=== PATIENT | male | born 1950 | race Caucasian/White ===

== ENCOUNTER 2018-10-29 14:10 | Observation (INO) ==
[2018-10-29] MEDS ORDERED: Sod Chloride 0.9% Inj 1,000 ML IV.SIG ONE (14:51)
--- NOTE | 2018-10-29 14:56 | ED ---
HPI General Chief Complaint: Abdominal Pain Stated Complaint: Dr Cruz Time Seen by Provider: 10/29/18 14:41 Source: patient Mode of arrival: ambulatory Limitations: no limitations History of Present Illness HPI narrative: 68-year-old male with PMH of HTN presents to the ED for evaluation of "around a few months" history of painful mass in the left lower quadrant of the abdomen. Gradual onset. Worsening over the last few weeks. Patient states that the area is not painful today. He endorses nausea and early satiety. He denies fever, chills, vomiting. He states that he has a bowel movement about every 3 days. States his bowel movements are well formed and nonbloody. He endorses decreased urination. He denies history of abdominal surgery. He is a lifelong smoker. He states that this condition has caused him to cut back his drinking to "almost nothing." He endorses history of multiple cancers in family members. He has never had a screening colonoscopy. He states that he saw his primary care, Dr. Viramontes, last week who recommended that he have imaging of the area. Related Data Home Medications Medication Instructions Recorded Confirmed No Known Home Medications 10/29/18 10/29/18 Allergies Allergy/AdvReac Type Severity Reaction Status Date / Time No Known Allergies Allergy Verified 10/29/18 15:14 Review of Systems ROS: all other systems reviewed are negative PMFSH Family History Family History Other Lung cancer Social History Social History Substance History: Active Abuse Second Hand Smoke Exposure: Yes Smoking Status: Current every day smoker Tobacco Type: Cigarettes How Often Do You Have a Drink Containing Alcohol: Monthly or less Recent Travel in [facility] within the Last 8 Weeks: No Recent Out of Country Travel within the Last 8 Weeks: No Exam Narrative Exam Narrative: GENERAL: Well-nourished, well-developed white male in no acute distress. SKIN: Focused skin assessment warm/dry. HEAD: Atraumatic. Normocephalic. EYES: Pupils equal and round. No scleral icterus. No injection or drainage. ENT: No nasal bleeding or discharge. Mucous membranes pink and moist. NECK: Trachea midline. No JVD. CARDIOVASCULAR: Regular rate and rhythm. No murmur appreciated. RESPIRATORY: No accessory muscle use. Clear to auscultation. Breath sounds equal bilaterally. GASTROINTESTINAL: Abdomen soft, nondistended. Palpable tender mass in the left infraumbilical region to the left lower quadrant. It is not reducible. Active bowel sounds. Hepatic and splenic margins not palpable. MUSCULOSKELETAL: No obvious deformities. No clubbing. No cyanosis. No edema. NEUROLOGICAL: Awake and alert. No obvious cranial nerve deficits. Motor grossly within normal limits. Normal speech. PSYCHIATRIC: Appropriate mood and affect; insight and judgment normal. Course Initial Documented Vital Signs Pulse Rate 109 H 10/29/18 14:32 Respiratory Rate 16 10/29/18 14:32 Blood Pressure 130/73 10/29/18 14:32 Pulse Oximetry 97 10/29/18 14:32 Last Documented Vital Signs Temperature 97.5 F L 10/30/18 04:00 Pulse Rate 86 10/30/18 04:00 Respiratory Rate 14 10/30/18 04:00 Blood Pressure 115/57 L 10/30/18 04:00 Pulse Oximetry 98 10/30/18 04:00 Medical Decision Making MICHAEL Attestation MICHAEL supervised visit: Yes Attestation: I, Dr. Almanzar, have reviewed the advance practice practitioner's documentation and am in agreement, met with the patient face to face, made the diagnosis, and the medical decision making was done by me. *My assessment and Findings: [-Patient is 68 years old male presented for evaluation of low abdomen hernia like structure. As per CAT scan patient has new mass, patient is admitted for further evaluation and treatment.] MDM Narrative Medical decision making narrative: 68-year-old male with PMH of HTN presents to the ED for evaluation of "around a few months" history of painful mass in the left lower quadrant of the abdomen. Worsening over the last few weeks. He endorses nausea, early satiety and weight loss. He is a lifelong smoker. He endorses history of multiple cancers in family members. He has never had a screening colonoscopy. The patient is tachycardic and afebrile on presentation. Physical exam reveals a large infraumbilical mass. WBC 15.3. Hemoglobin 11.7. Sodium 131. Lipase 63. Calcium 9.0. CT abdomen pelvis reveals an anterior abdominal wall mass measuring 17 cm x 9 cm which arises from the rectus muscle with breakthrough of the muscle of the fascia onto the left lateral margin. Cecum appears abnormal with much appears like a soft tissue mass. There is an abnormal mass of 2.5 cm in the left lobe of the liver adjacent to the falciform ligament. I discussed the findings with the patient as well as the recommendation for further evaluation on the inpatient setting. Patient is agreeable to this plan. I spoke with Dr. Goss who agrees to accept the patient to the medicine service. Please see medicine notes for disposition. Medical Screen Exam Complete: Yes Emergency Medical Condition: Yes Differential Diagnosis Differential Diagnosis: hernia versus mass versus bowel obstruction versus other Lab Data Result diagrams: 10/29/18 14:57 10/29/18 14:57 Lab Results 10/29/18 10/29/18 10/29/18 Range/Units 14:57 14:57 16:00 WBC 15.3 H (4.0-11.0) th/mm3 RBC 4.37 L (4.50-5.90) mil/mm3 Hgb 11.7 L (13.0-17.0) gm/dL Hct 35.5 L (39.0-51.0) % MCV 81.2 (80.0-100.0) fL MCH 26.8 L (27.0-34.0) pg MCHC 33.0 (32.0-36.0) % RDW 16.6 (11.6-17.2) % Plt Count 462 H (150-450) th/mm3 MPV 8.3 (7.0-11.0) fL Neut % (Auto) 84.9 H (16.0-70.0) % Lymph % (Auto) 7.6 L (9.0-44.0) % [place] % (Auto) 6.6 (0.0-8.0) % Eos % (Auto) 0.3 (0.0-4.0) % Baso % (Auto) 0.6 (0.0-2.0) % Neut # (Auto) 13.0 H (1.8-7.7) th/mm3 Lymph # (Auto) 1.2 (1.0-4.8) th/mm3 [place] # (Auto) 1.0 H (0.0-0.9) th/mm3 Eos # (Auto) 0.1 (0.0-0.4) th/mm3 Baso # (Auto) 0.1 (0.0-0.2) th/mm3 WBC Differential . Differential Comment Auto diff final Sodium 131 L (136-145) meq/L Potassium 4.3 (3.5-5.1) meq/L Chloride 93 L (98-107) meq/L Carbon Dioxide 26.5 (21.0-32.0) meq/L Anion Gap 12 (5-15) meq/L BUN 22 H (7-18) mg/dL Creatinine 0.99 (0.60-1.30) mg/dL Estimated GFR 75 L (>89) mL/min POC Glucose (68-110) mg/dl Random Glucose 136 H (74-106) mg/dL Calcium 9.0 (8.5-10.1) mg/dL Magnesium 2.3 (1.5-2.5) mg/dL Total Bilirubin 0.7 (0.2-1.0) mg/dL AST 15 (15-37) U/L ALT 15 (12-78) U/L Alkaline Phosphatase 133 H (45-117) U/L Total Protein 8.0 (6.4-8.2) g/dL Albumin 2.6 L (3.4-5.0) g/dL Lipase 63 L (73-393) U/L Urine Color Sarahi (Yellw/Straw) Urine Clarity Hazy H (Clear) Urine pH 5.0 (5.0-8.5) Ur Specific [place] 1.026 (1.002-1.035) Urine Protein 100 H (Neg-Trace) mg/dL Urine Glucose (UA) Negative (Negative) mg/dL Urine Ketones 20 (Negative) mg/dL Urine Occult Blood Negative (Negative) Urine Nitrate Negative (Negative) Urine Bilirubin Negative (Negative) Urine Ictotest Negative (Negative) Urine Urobilinogen 4 or greater (Less than 2) mg/dL Ur Leukocyte Esterase Negative (Negative) Urine RBC 2 (0-3) /hpf Urine WBC 3 (0-5) /hpf Ur Squamous Epith Cells <1 (0-5) /hpf Hyaline Casts 4 (0-3) /lpf Granular Casts 10 (None) /lpf Urine Mucus Many H (Occasional) /lpf Micro UA Comment Culture not ind Ur Microscopic Review Not Reportable Urine Culture Comments Culture not ind 10/29/18 Range/Units 23:44 WBC (4.0-11.0) th/mm3 RBC (4.50-5.90) mil/mm3 Hgb (13.0-17.0) gm/dL Hct (39.0-51.0) % MCV (80.0-100.0) fL MCH (27.0-34.0) pg MCHC (32.0-36.0) % RDW (11.6-17.2) % Plt Count (150-450) th/mm3 MPV (7.0-11.0) fL Neut % (Auto) (16.0-70.0) % Lymph % (Auto) (9.0-44.0) % [place] % (Auto) (0.0-8.0) % Eos % (Auto) (0.0-4.0) % Baso % (Auto) (0.0-2.0) % Neut # (Auto) (1.8-7.7) th/mm3 Lymph # (Auto) (1.0-4.8) th/mm3 [place] # (Auto) (0.0-0.9) th/mm3 Eos # (Auto) (0.0-0.4) th/mm3 Baso # (Auto) (0.0-0.2) th/mm3 WBC Differential Differential Comment Sodium (136-145) meq/L Potassium (3.5-5.1) meq/L Chloride (98-107) meq/L Carbon Dioxide (21.0-32.0) meq/L Anion Gap (5-15) meq/L BUN (7-18) mg/dL Creatinine (0.60-1.30) mg/dL Estimated GFR (>89) mL/min POC Glucose 141 H (68-110) mg/dl Random Glucose (74-106) mg/dL Calcium (8.5-10.1) mg/dL Magnesium (1.5-2.5) mg/dL Total Bilirubin (0.2-1.0) mg/dL AST (15-37) U/L ALT (12-78) U/L Alkaline Phosphatase (45-117) U/L Total Protein (6.4-8.2) g/dL Albumin (3.4-5.0) g/dL Lipase (73-393) U/L Urine Color (Yellw/Straw) Urine Clarity (Clear) Urine pH (5.0-8.5) Ur Specific [place] (1.002-1.035) Urine Protein (Neg-Trace) mg/dL Urine Glucose (UA) (Negative) mg/dL Urine Ketones (Negative) mg/dL Urine Occult Blood (Negative) Urine Nitrate (Negative) Urine Bilirubin (Negative) Urine Ictotest (Negative) Urine Urobilinogen (Less than 2) mg/dL Ur Leukocyte Esterase (Negative) Urine RBC (0-3) /hpf Urine WBC (0-5) /hpf Ur Squamous Epith Cells (0-5) /hpf Hyaline Casts (0-3) /lpf Granular Casts (None) /lpf Urine Mucus (Occasional) /lpf Micro UA Comment Ur Microscopic Review Urine Culture Comments Imaging Data Radiologist's impression: Abdomen/Pelvis CT 10/29/18 14:51 CONCLUSION: 1. Large mass the rectus anterior abdominal wall, undoubtedly malignant 2. Abnormal cecum 3. 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 4. Discharge Plan Discharge Disposition Patient Disposition: ED Admit(ED Internal Use Only) Discharge Order Discharge Orders: ED Use Only Admit Order (Routine); Ordered 10/29/18 Ordered By: Whitney Bustamante Physicians Team ED Provider: Mart Almanzar ED Midlevel Provider: Whitney Bustamante Primary Care Provider: Saranya Santana Attending Provider: Vasyl Galo Other Providers: Derek Sullivan V ; [employer] Status ED Status: Left Department Discharge Information Discharge Date/Time: 10/29/18 19:34
[2018-10-29 15:21] LABS: Baso # (Auto) 0.1 th/mm3 (0.0-0.2); Baso % (Auto) 0.6 % (0.0-2.0); Eos # (Auto) 0.1 th/mm3 (0.0-0.4); Eos % (Auto) 0.3 % (0.0-4.0); Hematocrit 35.5 % (39.0-51.0); Hemoglobin 11.7 gm/dL (13.0-17.0); Lymph # (Auto) 1.2 th/mm3 (1.0-4.8); Lymph % (Auto) 7.6 % (9.0-44.0); Mean Corpuscular Hemoglobin 26.8 pg (27.0-34.0); Mean Corpuscular Volume 81.2 fL (80.0-100.0); Mean Platelet Volume 8.3 fL (7.0-11.0); Mono % (Auto) 6.6 % (0.0-8.0); Neut % (Auto) 84.9 % (16.0-70.0); Platelet Count 462 th/mm3 (150-450); Red Blood Count 4.37 mil/mm3 (4.50-5.90); Red Cell Distribution Width 16.6 % (11.6-17.2); White Blood Count 15.3 th/mm3 (4.0-11.0)
[2018-10-29 15:38] LABS: Albumin 2.6 g/dL (3.4-5.0); Anion Gap 12 meq/L (5-15); Aspartate Aminotransferase 15 U/L (15-37); Blood Urea Nitrogen 22 mg/dL (7-18); Carbon Dioxide 26.5 meq/L (21.0-32.0); Chloride 93 meq/L (98-107); Glomerular Filtration Rate 75 mL/min (>89); Glucose,Random 136 mg/dL (74-106); Lipase 63 U/L (73-393); Magnesium 2.3 mg/dL (1.5-2.5); Potassium 4.3 meq/L (3.5-5.1); Sodium 131 meq/L (136-145)
[2018-10-29 15:42] LABS: Alanine Aminotransferase 15 U/L (12-78); Alkaline Phosphatase 133 U/L (45-117)
[2018-10-29 16:21] LABS: Clarity,Urine Hazy (Clear); Color,Urine Amber (Yellw/Straw); Glucose,Urine (UA) Negative (Negative); Hyaline Casts,Urine 4 /lpf (0-3); Leukocyte Esterase,Urine Negative (Negative); Mucus,Urine Many /lpf (Occasional); Nitrite,Urine Negative (Negative); Specific Gravity,Urine 1.026 (1.002-1.035); Squamous Epithelial Cell,Urine <1 /hpf (0-5); Urobilinogen,Urine 4 or Greater mg/dL (Less than 2)
[2018-10-29 16:25] LABS: Bilirubin,Urine Negative (Negative); Ictotest,Urine Negative (Negative)
--- NOTE | 2018-10-29 17:27 | CT ---
EXAM DATE: 10/29/2018 5:06 PM EST AGE/SEX: 68 years / Male INDICATIONS: Abdominal pain left lower quadrant. CLINICAL DATA: This is the patient's initial encounter. Patient reports that signs and symptoms have been present for 1 day and indicates a pain score of 2/10. MEDICAL/SURGICAL HISTORY: Renal calculi. None. ORAL CONTRAST: No oral contrast ingested. RADIATION DOSE: 8.13 CTDI (mGy) COMPARISON: No prior exams available for comparison. TECHNIQUE: Multiple contiguous axial images were obtained through the abdomen and pelvis following b olus infusion of 90 ml Omnipaque 350 (iohexol) nonionic water-soluble contrast as a single exam dos e. No oral contrast ingested. Using automated exposure control and adjustment of the mA and/or kV ac cording to patient size, radiation dose was kept as low as reasonably achievable to obtain optimal di agnostic quality images. DICOM format image data is available electronically for review and comparis on. FINDINGS: Lower Lungs: Lower lungs are clear. Liver: The liver is abnormal with a 2.5 cm mass in the left lobe of the liver segment 2 adjacent to t he falciform ligament. No other lesions are present in the liver. This is suspicious for metastatic d isease or primary neoplasm of the liver. Multiple gallstones are present in a benign-appearing gallbl adder. The pancreas and spleen appear unremarkable . Adrenals and kidneys appear normal. There is a large mass in the anterior abdominal wall measuring 17 cm x 9 cm and appears to arise in the rectus muscle with breakthrough of the muscle of the fascia on the left lateral margin. The inferior margin of this is intact. The cecum appears abnormal with what looks like a soft tissue mass in the cecum. The ascending, trans verse and descending colon appear unremarkable. The sigmoid colon multiple diverticuli are noted. There is no retroperitoneal adenopathy Extensive atherosclerotic vascular disease is present in the abdominal aorta In the pelvis there are multiple diverticuli in the sigmoid colon. The bladder prostate are unremarka ble. There is no obturator or iliac adenopathy. Review of bone windows reveals no bony metastatic dis ease. CONCLUSION: 1. Large mass the rectus anterior abdominal wall, undoubtedly malignant 2. Abnormal cecum 3. 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 4. Electronically signed by: Hawk Roblero MD 10/29/2018 5:26 PM EST
[2018-10-29] MEDS ORDERED: Acetaminophen 325 MG Tablet PO PRN ×2 (18:02→18:06)
[2018-10-29] MEDS ORDERED: Naloxone Inj 0.4 MG/ML Vial IV.PUSH PRN (18:02)
[2018-10-29] MEDS ORDERED: Dextrose 50% in Water 50 ML Vial IV.PUSH PRN (18:08)
--- NOTE | 2018-10-29 18:25 | P.HP ---
History of Present Illness Primary Care Physician: Saranya Santana MD Chief Complaint: Abdominal pain History of Present Illness: 68-year-old with a past medical history of diabetes type 2, 50-year plus tobacco use presented to the ED at the request of his PCP for evaluation of abdominal pain times several weeks duration along with 20+ pound weight loss over the past couple weeks. Patient has a palpable mass in his left lower quadrants and denies any bladder or bowel dysfunction. He denies any prior colonoscopy. An abdominal CT in the ED revealed a mass in the rectus anterior abdominal wall as well as abnormal cecum. Patient reports anorexia. Denies any blood in his stool. Patient is very adamant about the fact that he does not want any aggressive therapy once a diagnosis is made. Review of Systems All other systems reviewed negative except as stated in HPI PMFSH - History History Provided By: Patient - Medical History Medical History: Medical History (Last Reviewed 10/29/18 @ 15:01 by Vicky Rose RN) History of kidney stones - Surgical History Surgical History: Surgical History (Last Reviewed 10/29/18 @ 15:01 by Vicky Rose RN) No history of previous surgery - Family History Family History: Family History (Last Updated 10/29/18 @ 18:17 by Jovon Goss MD) Other Lung cancer - Tobacco History Second Hand Smoke Exposure: Yes Tobacco Use In Past 30 Days: Yes Smoking Status: Current every day smoker Tobacco Type: Cigarettes - Alcohol History How Often Do You Have a Drink Containing Alcohol: Monthly or less - Substance Use History Substance History: Active Abuse - Substance Use Type Marijuana Route Used: Inhalation - Travel History Recent Travel in the [place] Within the Last 8 Weeks: No Recent Travel Out of the Country Within the Last 8 Weeks: No - Immunization History Tetanus Immunization: Unsure Medications and Allergies Active Medications: Active Medications Acetaminophen (Tylenol) 650 mg PO Q4H PRN PRN Reason: Temp > 100.4 Acetaminophen (Tylenol) 650 mg PO Q6HR PRN PRN Reason: PAIN SCALE 1 TO 2 Al Hydroxide/Mg Hydroxide (Milk Of Magnesia Liq) 30 ml PO Q12H PRN PRN Reason: Mild Constipation Albuterol (Duoneb Neb (Prn)) 1 ampul NEB Q2HR NEB PRN PRN Reason: SHORTNESS OF BREATH Dextrose (D50w Vial) 50 ml IV.PUSH UNSCH PRN PRN Reason: PER HYPOGLYCEMIA PROTOCOL Glucagon (Glucagon Inj) 1 mg OTHER PRN PRN PRN Reason: for Hypoglycemia Protocol Insulin Aspart (Novolog Insulin Correctional Sugar Inj) 0 unit SQ ACHS JAMIR; Protocol Naloxone HCl (Narcan Inj) 0.4 mg IV.PUSH UNSCH PRN PRN Reason: SEE LABEL COMMENTS Nicotine (Habitrol 21 Mg Patch.24 Hr) 1 patch T-DERMAL DAILY JAMIR Ondansetron HCl (Zofran Inj) 4 mg IV.PUSH Q6H PRN PRN Reason: NAUSEA OR VOMITING Patch Removal (Remove Old Patch) 1 each T-DERMAL HS JAMIR Sennosides (Senokot) 17.2 mg PO Q12H PRN PRN Reason: Moderate Constipation Sodium Chloride (Ns Flush) 2 ml IV.FLUSH PRN PRN PRN Reason: FLUSH AFTER USING IV ACCESS Sodium Chloride (Ns Flush) 2 ml IV.FLUSH BID JAMIR Sodium Chloride (Ns Flush) 2 ml IV.FLUSH PRN PRN PRN Reason: FLUSH AFTER USING IV ACCESS Allergies Allergy/AdvReac Type Severity Reaction Status Date / Time No Known Allergies Allergy Verified 10/29/18 15:14 Home Medications Medication Instructions Recorded Confirmed Type No Known Home Medications 10/29/18 10/29/18 History Exam Vital signs: Vital Signs 10/29/18 14:32 10/29/18 15:04 Pulse Rate 109 H 97 H Respiratory Rate 16 16 Blood Pressure 130/73 139/66 Pulse Oximetry 97 98 Intake & Output 10/28/18 10/29/18 10/29/18 18:59 06:59 18:59 Intake Total 1000 / 1000 Balance 1000 / 1000 Weight 77.564 kg Intake: IV 1000 / 1000 NS Inj 1,000 ML @ Wide Open IV. 1000 / 1000 SIG BOLUS ONE Rx#:[id number] Narrative: GENERAL: NAD SKIN: Warm and dry. HEAD: Atraumatic. Normocephalic. EYES: Pupils equal and round. No scleral icterus. No injection or drainage. ENT: No nasal bleeding or discharge. Mucous membranes pink and moist. NECK: Trachea midline. No JVD. CARDIOVASCULAR: Regular rate and rhythm. RESPIRATORY: No accessory muscle use. Clear to auscultation. Breath sounds equal bilaterally. GASTROINTESTINAL: Abdomen soft, tender, nondistended. + Palpable mass in the left lower quadrant, tender to palpation MUSCULOSKELETAL: Extremities without clubbing, cyanosis, or edema. No obvious deformities. NEUROLOGICAL: Awake and alert. No obvious cranial nerve deficits. Motor grossly within normal limits. Five out of 5 muscle strength in the arms and legs. Normal speech. PSYCHIATRIC: Appropriate mood and affect; insight and judgment normal. Results - Labs CBC & Chem 7: 10/29/18 14:57 10/29/18 14:57 Labs: Laboratory Results - last 24 hr 10/29/18 10/29/18 10/29/18 14:57 14:57 16:00 WBC 15.3 H RBC 4.37 L Hgb 11.7 L Hct 35.5 L MCV 81.2 MCH 26.8 L MCHC 33.0 RDW 16.6 Plt Count 462 H MPV 8.3 Neut % (Auto) 84.9 H Lymph % (Auto) 7.6 L [place] % (Auto) 6.6 Eos % (Auto) 0.3 Baso % (Auto) 0.6 Neut # (Auto) 13.0 H Lymph # (Auto) 1.2 [place] # (Auto) 1.0 H Eos # (Auto) 0.1 Baso # (Auto) 0.1 WBC Differential . Differential Comment Auto diff final Sodium 131 L Potassium 4.3 Chloride 93 L Carbon Dioxide 26.5 Anion Gap 12 BUN 22 H Creatinine 0.99 Estimated GFR 75 L Random Glucose 136 H Calcium 9.0 Magnesium 2.3 Total Bilirubin 0.7 AST 15 ALT 15 Alkaline Phosphatase 133 H Total Protein 8.0 Albumin 2.6 L Lipase 63 L Urine Color Sarahi Urine Clarity Hazy H Urine pH 5.0 Ur Specific [place] 1.026 Urine Protein 100 H Urine Glucose (UA) Negative Urine Ketones 20 Urine Occult Blood Negative Urine Nitrate Negative Urine Bilirubin Negative Urine Ictotest Negative Urine Urobilinogen 4 or greater Ur Leukocyte Esterase Negative Urine RBC 2 Urine WBC 3 Ur Squamous Epith Cells <1 Hyaline Casts 4 Granular Casts 10 Urine Mucus Many H Micro UA Comment Culture not ind Ur Microscopic Review Not Reportable Urine Culture Comments Culture not ind - Imaging Impressions Abdomen/Pelvis CT 10/29/18 14:51 CONCLUSION: 1. Large mass the rectus anterior abdominal wall, undoubtedly malignant 2. Abnormal cecum 3. 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 4. Caprini VTE Risk Assessment Caprini VTE Risk Assessment: Moderate/High Risk (score >= 2) Caprini Risk Assessment Model: Point Value = 1 Point Value = 2 Point Value = 3 Point Value = 5 Age 41-60 Minor surgery BMI > 25 kg/m2 Swollen legs Varicose veins or History of unexplained or recurrent spontaneous Oral contraceptives or hormone replacement Sepsis (< 1 month) Serious lung disease, including pneumonia (< 1 month) Abnormal pulmonary function Acute myocardial infarction Congestive heart failure (< 1 month) History of inflammatory bowel disease Medical patient at bed rest Age 61-74 Arthroscopic surgery Major open surgery (> 45 min) Laparoscopic surgery (> 45 min) Malignancy Confined to bed (> 72 hours) Immobilizing plaster cast Central venous access Age >= 75 History of VTE Family history of VTE Factor V Leiden Prothrombin [id number] Lupus anticoagulant Anticardiolipin antibodies Elevated serum homocysteine Heparin-induced thrombocytopenia Other congenital or acquired thrombophilia Stroke (< 1 month) Elective arthroplasty Hip, pelvis, or leg fracture Acute spinal cord injury (< 1 month) Prophylaxis Regimen: Total Risk Factor Score Risk Level Prophylaxis Regimen 0-1 Low Early ambulation 2 Moderate Order ONE of the following: *Sequential Compression Device (SCD) *Heparin 5000 units SQ BID 3-4 Higher Order ONE of the following medications: *Heparin 5000 units SQ TID *Enoxaparin/Lovenox 40 mg SQ daily (WT < 150 kg, CrCl > 30 mL/min) *Enoxaparin/Lovenox 30 mg SQ daily (WT < 150 kg, CrCl > 10-29 mL/min) *Enoxaparin/Lovenox 30 mg SQ BID (WT < 150 kg, CrCl > 30 mL/min) AND/OR *Sequential Compression Device (SCD) 5 or more Highest Order ONE of the following medications: *Heparin 5000 units SQ TID (Preferred with Epidurals) *Enoxaparin/Lovenox 40 mg SQ daily (WT < 150 kg, CrCl > 30 mL/min) *Enoxaparin/Lovenox 30 mg SQ daily (WT < 150 kg, CrCl > 10-29 mL/min) *Enoxaparin/Lovenox 30 mg SQ BID (WT < 150 kg, CrCl > 30 mL/min) AND *Sequential Compression Device (SCD) Assessment and Plan - Plan 68-year-old with Abdominal mass suspicious for malignant tumor Metastasis disease of unknown cancer type CT abdomen noted and reviewed by me with finding of 1. Large mass the rectus anterior abdominal wall, undoubtedly malignant 2. Abnormal cecum 3. 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 Check tumor markers including CEA, alpha-fetoprotein, LDH, CA 19-9 Will consult gastroenterology for evaluation for colonoscopy with biopsy vs IR Oncology consultation will likely be needed during this hospitalization History of diabetes type 2 Check hemoglobin A1c Leukocytosis Likely stress reactive, monitor Normochromic normocytic anemia Check iron study Tobacco abuse Tobacco counseling cessation provided DVT prophylaxis:B-SCDs
[2018-10-29] MEDS: Budesonide-Formoterol 160/4.5 MCG 6 GM Inhaler INH SCH (20:53)
[2018-10-30] MEDS: Insulin NovoLOG Aspart Correctional Sugar Inj SQ SCH ×4 (00:24→17:37)
[2018-10-30 08:19] LABS: Baso % (Auto) 0.4 % (0.0-2.0); Eos # (Auto) 0.1 th/mm3 (0.0-0.4); Hematocrit 35.6 % (39.0-51.0); Hemoglobin 11.5 gm/dL (13.0-17.0); Lymph % (Auto) 8.9 % (9.0-44.0); Mean Corpuscular HGB Conc 32.4 % (32.0-36.0); Mean Corpuscular Hemoglobin 26.1 pg (27.0-34.0); Mean Corpuscular Volume 80.6 fL (80.0-100.0); Mean Platelet Volume 7.3 fL (7.0-11.0); Mono # (Auto) 0.8 th/mm3 (0.0-0.9); Neut # (Auto) 9.7 th/mm3 (1.8-7.7); Neut % (Auto) 82.7 % (16.0-70.0); Platelet Count 446 th/mm3 (150-450); Red Blood Count 4.41 mil/mm3 (4.50-5.90); Red Cell Distribution Width 16.2 % (11.6-17.2); White Blood Count 11.7 th/mm3 (4.0-11.0)
[2018-10-30] MEDS: Budesonide-Formoterol 160/4.5 MCG 6 GM Inhaler INH SCH (08:43)
[2018-10-30 08:44] LABS: Alkaline Phosphatase 116 U/L (45-117); Total Protein 7.3 g/dL (6.4-8.2)
[2018-10-30 08:45] LABS: % Iron Saturation 10.5 % (20-50); Alpha Fetoprotein Tumor Marker 1.4 ng/mL (0.5-8.0); Carcinoembryonic Antigen 3.7 ng/mL (0.2-5.0)
[2018-10-30 08:50] LABS: Alanine Aminotransferase 14 U/L (12-78); Albumin 2.3 g/dL (3.4-5.0); Anion Gap 9 meq/L (5-15); Blood Urea Nitrogen 15 mg/dL (7-18); Calcium 8.3 mg/dL (8.5-10.1); Carbon Dioxide 28.4 meq/L (21.0-32.0); Chloride 97 meq/L (98-107); Glomerular Filtration Rate Greater Than 89 mL/min (>89); Glucose,Random 103 mg/dL (74-106); Sodium 134 meq/L (136-145)
[2018-10-30 08:52] LABS: Potassium 4.3 meq/L (3.5-5.1)
[2018-10-30 08:58] LABS: Aspartate Aminotransferase 15 U/L (15-37)
[2018-10-30] MEDS ORDERED: Tiotropium Bromide 18 MCG/ACT Inhaler INH SCH (09:00)
--- NOTE | 2018-10-30 10:45 | P.CONGI ---
History of Present Illness Consult date: 10/30/18 Consult reason: cecum mass Chief complaint: Abdominal mass History of Present Illness: This is a 68 yo M with PMH significant for COPD, diabetes mellitus, history of ETOH abuse and nicotine dependence. Patient presented to the emergency department yesterday for evaluation of abdominal pain. Patient states that he has been having abdominal pain for the past couple months. States the pain began in his right lower quadrant abdomen where he noticed a lump and both the pain and lump have been aggressively growing throughout his lower abdomen into his left side. He states that pain is fairly constant, described as a sharp stabbing sensation. He has been taking Aleve and aspirin on a daily basis to help relieve the pain. Patient reports the pain is worse with movement. Other than the Aleve he denies any alleviating factors. Has also been noticing thin stools, states that his bowel movements have been less frequent because he is barely eating. Reports bright red blood in his stools, states that this has been going on for 30 years. He reports that he notices more bleeding after he drinks alcohol. Denies any black stools. He reports a decrease in appetite and an aversion to food. He does report nausea but denies any vomiting. Patient has had a 70 pound weight loss, unintentional over the past year. Patient denies history of colonoscopy or EGD. Patient reports that he has been excessively fatigued over the past couple months and has barely been able to get out of bed. He has also had multiple falls but denies any loss of consciousness. He is unsure why he has been falling, states possibly secondary to weakness. Patient saw his primary care last Saturday and explained his symptoms and his primary care suggested he go to the ER for immediate evaluation. Patient did not feel like coming over the weekend and finally presented yesterday. Patient reports history of alcohol abuse, was drinking 1/ 5 of liquor daily but has slowly been cutting back because it has made him feel sick and he has not had even a sip of alcohol in 2 months. He continues to smoke 1 pack/day. Patient also reports occasional marijuana use. Review of Systems Constitutional: Reports anorexia, Reports fatigue, Reports weight loss Cardiovascular: Denies chest pain Respiratory: Reports cough Gastrointestinal: Reports abdominal pain, Reports bright, red blood in stools, Reports change in bowel habits, Reports nausea, Denies black, tarry stools, Denies coffee ground vomit, Denies difficulty swallowing, Denies feeling full early, Denies loose stools, Denies vomiting Comments: mass to lower abdomen PMFSH - History History Provided By: Patient - Medical History Medical History: Medical History (Last Reviewed 10/30/18 @ 08:42 by Melisa Leyva) History of kidney stones - Surgical History Surgical History: Surgical History (Last Reviewed 10/30/18 @ 08:42 by Melisa Leyva) No history of previous surgery - Family History Family History: Family History (Last Updated 10/29/18 @ 18:17 by Jovon Goss MD) Other Lung cancer - Tobacco History Second Hand Smoke Exposure: Yes Tobacco Use In Past 30 Days: Yes Smoking Status: Current every day smoker Tobacco Type: Cigarettes - Alcohol History How Often Do You Have a Drink Containing Alcohol: Monthly or less - Substance Use History Substance History: Active Abuse - Substance Use Type Marijuana Route Used: Inhalation - Travel History Recent Travel in the [place] Within the Last 8 Weeks: No Recent Travel Out of the Country Within the Last 8 Weeks: No - Immunization History Tetanus Immunization: Unsure Medications and Allergies Active Medications: Active Medications Acetaminophen (Tylenol) 650 mg PO Q4H PRN PRN Reason: Temp > 100.4 Acetaminophen (Tylenol) 650 mg PO Q6HR PRN PRN Reason: PAIN SCALE 1 TO 2 Al Hydroxide/Mg Hydroxide (Milk Of Magnmanny Liq) 30 ml PO Q12H PRN PRN Reason: Mild Constipation Albuterol (Duoneb Neb (Prn)) 1 ampul NEB Q2HR NEB PRN PRN Reason: SHORTNESS OF BREATH Budesonide/Formoterol Fumarate (Symbicort 160/4.5 Mcg Inh) 2 puff INH BID [facility] Last Admin: 10/30/18 08:43 Dose: 2 puff Dextrose (D50w Vial) 50 ml IV.PUSH UNSCH PRN PRN Reason: PER HYPOGLYCEMIA PROTOCOL Glucagon (Glucagon Inj) 1 mg OTHER PRN PRN PRN Reason: for Hypoglycemia Protocol Insulin Aspart (Novolog Insulin Correctional Sugar Inj) 0 unit SQ [facility]; Protocol Last Admin: 10/30/18 08:50 Dose: Not Given Naloxone HCl (Narcan Inj) 0.4 mg IV.PUSH UNSCH PRN PRN Reason: SEE LABEL COMMENTS Nicotine (Habitrol 21 Mg Patch.24 Hr) 1 patch T-DERMAL DAILY [facility] Last Admin: 10/30/18 08:42 Dose: 1 patch Ondansetron HCl (Zofran Inj) 4 mg IV.PUSH Q6H PRN PRN Reason: NAUSEA OR VOMITING Patch Removal (Remove Old Patch) 1 each T-DERMAL HS [facility] Last Admin: 10/29/18 20:54 Dose: Not Given Sennosides (Senokot) 17.2 mg PO Q12H PRN PRN Reason: Moderate Constipation Sodium Chloride (Ns Flush) 2 ml IV.FLUSH PRN PRN PRN Reason: FLUSH AFTER USING IV ACCESS Sodium Chloride (Ns Flush) 2 ml IV.FLUSH BID [facility] Last Admin: 10/30/18 08:43 Dose: 2 ml Sodium Chloride (Ns Flush) 2 ml IV.FLUSH PRN PRN PRN Reason: FLUSH AFTER USING IV ACCESS Tiotropium Putnam (Spiriva 18 Mcg Inh) 18 mcg INH DAILY [facility] Last Admin: 10/30/18 08:42 Dose: 18 mcg Allergies Allergy/AdvReac Type Severity Reaction Status Date / Time No Known Allergies Allergy Verified 10/29/18 15:14 Home Medications Medication Instructions Recorded Confirmed Type No Known Home Medications 10/29/18 10/29/18 History Exam Vital signs: Vital Signs 10/29/18 14:32 10/29/18 15:04 10/29/18 18:27 Temperature Pulse Rate 109 H 97 H 100 H Respiratory Rate 16 16 19 Blood Pressure 130/73 139/66 167/79 H Pulse Oximetry 97 98 98 10/29/18 19:53 10/30/18 00:00 10/30/18 04:00 Temperature 97.7 F 98.0 F 97.5 F L Pulse Rate 100 H 97 H 86 Respiratory Rate 17 16 14 Blood Pressure 160/66 H 130/65 115/57 L Pulse Oximetry 97 96 98 10/30/18 08:00 Temperature 97.6 F Pulse Rate 92 H Respiratory Rate 18 Blood Pressure 134/65 Pulse Oximetry 96 Intake & Output 10/29/18 10/30/18 10/30/18 18:59 06:59 18:59 Intake Total 1000 / 1000 240 / 240 Balance 1000 / 1000 240 / 240 Weight 77.564 kg 75.75 kg Intake: IV 1000 / 1000 NS Inj 1,000 ML @ Wide Open IV. 1000 / 1000 SIG BOLUS ONE Rx#:[id number] Oral 240 / 240 Other: # Voids 2 Weight On Admission 75.75 kg - Constitutional no acute distress, chronically ill appearing - Routine HEENT Exam Head: Present: normocephalic, atraumatic - Routine Respiratory Exam Absent: accessory muscle use - Routine Abdominal Exam Present: soft, normoactive bowel sounds, tenderness (tenderness to lower abdomen mass ), mass (mass present to lower abdomen ) - Routine Skin Exam Present: dry, pallor, warm - Routine Neurological Exam Present: alert, oriented X3 Results - Labs CBC & Chem 7: 10/30/18 07:57 10/30/18 07:57 Labs: Laboratory Results - last 24 hr 10/29/18 10/29/18 10/29/18 14:57 14:57 16:00 WBC 15.3 H RBC 4.37 L Hgb 11.7 L Hct 35.5 L MCV 81.2 MCH 26.8 L MCHC 33.0 RDW 16.6 Plt Count 462 H MPV 8.3 Neut % (Auto) 84.9 H Lymph % (Auto) 7.6 L Cobb % (Auto) 6.6 Eos % (Auto) 0.3 Baso % (Auto) 0.6 Neut # (Auto) 13.0 H Lymph # (Auto) 1.2 Cobb # (Auto) 1.0 H Eos # (Auto) 0.1 Baso # (Auto) 0.1 WBC Differential . Differential Comment Auto diff final Sodium 131 L Potassium 4.3 Chloride 93 L Carbon Dioxide 26.5 Anion Gap 12 BUN 22 H Creatinine 0.99 Estimated GFR 75 L POC Glucose Random Glucose 136 H Calcium 9.0 Magnesium 2.3 Iron TIBC % Saturation Total Bilirubin 0.7 AST 15 ALT 15 Alkaline Phosphatase 133 H Lactate Dehydrogenase Total Protein 8.0 Albumin 2.6 L Lipase 63 L Tumor Marker AFP Carcinoembryonic Ag CA 19-9 Antigen Urine Color Sarahi Urine Clarity Hazy H Urine pH 5.0 Ur Specific Tyler 1.026 Urine Protein 100 H Urine Glucose (UA) Negative Urine Ketones 20 Urine Occult Blood Negative Urine Nitrate Negative Urine Bilirubin Negative Urine Ictotest Negative Urine Urobilinogen 4 or greater Ur Leukocyte Esterase Negative Urine RBC 2 Urine WBC 3 Ur Squamous Epith Cells <1 Hyaline Casts 4 Granular Casts 10 Urine Mucus Many H Micro UA Comment Culture not ind Ur Microscopic Review Not Reportable Urine Culture Comments Culture not ind 10/29/18 10/30/18 10/30/18 23:44 07:57 07:57 WBC RBC Hgb Hct MCV MCH MCHC RDW Plt Count MPV Neut % (Auto) Lymph % (Auto) Cobb % (Auto) Eos % (Auto) Baso % (Auto) Neut # (Auto) Lymph # (Auto) Cobb # (Auto) Eos # (Auto) Baso # (Auto) WBC Differential Differential Comment Sodium Potassium Chloride Carbon Dioxide Anion Gap BUN Creatinine Estimated GFR POC Glucose 141 H Random Glucose Calcium Magnesium Iron 22 L TIBC 210 L % Saturation 10.5 L Total Bilirubin AST ALT Alkaline Phosphatase Lactate Dehydrogenase 154 Total Protein Albumin Lipase Tumor Marker AFP 1.4 Carcinoembryonic Ag 3.7 CA 19-9 Antigen 7.9 Urine Color Urine Clarity Urine pH Ur Specific Tyler Urine Protein Urine Glucose (UA) Urine Ketones Urine Occult Blood Urine Nitrate Urine Bilirubin Urine Ictotest Urine Urobilinogen Ur Leukocyte Esterase Urine RBC Urine WBC Ur Squamous Epith Cells Hyaline Casts Granular Casts Urine Mucus Micro UA Comment Ur Microscopic Review Urine Culture Comments 10/30/18 10/30/18 10/30/18 07:57 07:57 08:50 WBC 11.7 H RBC 4.41 L Hgb 11.5 L Hct 35.6 L MCV 80.6 MCH 26.1 L MCHC 32.4 RDW 16.2 Plt Count 446 MPV 7.3 Neut % (Auto) 82.7 H Lymph % (Auto) 8.9 L Cobb % (Auto) 7.0 Eos % (Auto) 1.0 Baso % (Auto) 0.4 Neut # (Auto) 9.7 H Lymph # (Auto) 1.0 Cobb # (Auto) 0.8 Eos # (Auto) 0.1 Baso # (Auto) 0.0 WBC Differential . Differential Comment Auto diff final Sodium 134 L Potassium 4.3 Chloride 97 L Carbon Dioxide 28.4 Anion Gap 9 BUN 15 Creatinine 0.64 Estimated GFR Greater than 89 POC Glucose 109 Random Glucose 103 Calcium 8.3 L Magnesium Iron TIBC % Saturation Total Bilirubin 0.7 AST 15 ALT 14 Alkaline Phosphatase 116 Lactate Dehydrogenase Total Protein 7.3 D Albumin 2.3 L Lipase Tumor Marker AFP Carcinoembryonic Ag CA 19-9 Antigen Urine Color Urine Clarity Urine pH Ur Specific Tyler Urine Protein Urine Glucose (UA) Urine Ketones Urine Occult Blood Urine Nitrate Urine Bilirubin Urine Ictotest Urine Urobilinogen Ur Leukocyte Esterase Urine RBC Urine WBC Ur Squamous Epith Cells Hyaline Casts Granular Casts Urine Mucus Micro UA Comment Ur Microscopic Review Urine Culture Comments - Imaging Impressions Abdomen/Pelvis CT 10/29/18 14:51 CONCLUSION: 1. Large mass the rectus anterior abdominal wall, undoubtedly malignant 2. Abnormal cecum 3. 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 4. Assessment and Plan - Plan Assessment: - Large mass in the rectus anterior abdominal wall with abnormal appearing soft tissue mass in the cecum and probable mets to the left lobe of the liver CC: RLQ mass with abdominal pain that has been progressing for a couple months , now the mass has progressed over to the mid and left lower abdomen. Pain is constant, described as a sharp stabbing sensation. He has been taking Aleve and aspirin on a daily basis to help relieve the pain. Worse with movement. Has also been noticing thin stools, states that his bowel movements have been less frequent because he is barely eating. Reports bright red blood in his stools, states that this has been going on for 30 years. He reports that he notices more bleeding after he drinks alcohol. Denies any black stools. He reports a decrease in appetite and an aversion to food. He does report nausea but denies any vomiting. Patient has had a 70 pound weight loss, unintentional over the past year. Patient denies history of colonoscopy or EGD. CT abd/pelvis W IV contrast (10/29) Large mass the rectus anterior abdominal wall, undoubtedly malignant. Abnormal cecum. 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 - History of alcohol abuse, was drinking 1/5 of liquor daily but has slowly been cutting back because it has made him feel sick and he has not had even a sip of alcohol in 2 months. - Nicotine dependence- Smoke 1 pack/day. Patient also reports occasional marijuana use. - Diabetes mellitus, COPD- per primary team I had a long discussion with the patient regarding further GI work up including colonoscopy for tissue biopsy, EGD given his chronic NSAID use, alcohol abuse, and nicotine dependence. Pt is aware that the he most likely has cancer, he does not want to pursue further work up to establish definite diagnosis. States that he will not have EGD or colonoscopy. Pt accepts the risks of not pursuing further work up. He is oriented x 3 and able to answer all questions appropriately and appears to have sound judgement. I discussed case with Dr. Galo and made him aware that pt is refusing GI procedures. I have placed consult for palliative team to come speak with patient. Plan: Recommending EGD/colonoscopy Recommend oncology consult Pt refusing any further testing or treatment As stated above, pt is oriented Discussed with Dr. Galo Palliative care consulted GI will sign off, please reconsult if patient wishes to pursue further work up This patient has been seen and examined by myself and Dr. Sullivan and this note is written on his behalf
[2018-10-30 12:27] VITALS: O2SAT 95
--- NOTE | 2018-10-30 12:49 | P.CONPAL ---
Consult Service: Palliative Care Requesting Physician: Liz Fan Reason for Consult: a. To assist with evaluation and management of symptoms including: abdominal pain. b. To assist medical decision maker(s) with: better understanding of current medical conditions; weighing benefits/burdens of medical treatment options; making medical treatment decisions. Primary Care Provider: Saranya Santana MD History of Present Illness History of Present Illness: 10/29/18 complaints of painful abdominal mass , which has been present for a few months. Worsening over the last few weeks. Also reported nausea and early satiety. Weight loss approximately 70 pounds in a year. Decreased urination. Decreased appetite. + Family history of cancer. * CT abdomen pelvis noted large anterior abdominal wall mass measuring 17 cm x 9cm "undoubtedly malignant". There also appears to be some sort of extension into liver lobe 2.5 cm. WBC 15.3, hemoglobin 11.7, hematocrit 35.5. Platelet 462. Chemistry unremarkable. AFP 4, CEA 3.7, CA 199 7.9. * GI consulted: Patient also endorsed some bowel movement changes that they are less frequent, smaller, and at times bright red blood present. No history of colonoscopy or EGD. Probable metastases to the liver. + History of drinking alcohol, though recently drinking less none in 2 months. Continues to smoke 1 PPD. GI notes long discussion regarding further workup which would include a colonoscopy biopsy, EGD, discussed patient aware most likely has cancer he does not want further workup or treatment for this. Palliative care consulted to assist with clarification of goals of treatment. Patient seen in emergency department room in hospital bed. He is alert, oriented and appropriate. He is able to report findings of a large mass in his abdomen. He indicates he has felt his overall health going down for the past year or so, and endorses that he is "not young anymore ". He tells me that he came to the hospital to have it checked out and to possibly ask for hospice. He relates to me that when his mother had lung cancer she was on hospice services and comfortably and this is what he would want. Explore with him further diagnostics that may be required for confirmative biopsy, also explore with him potential treatment options which might include chemotherapy, radiation, surgery. He expresses that he would not any chemotherapy chemicals, that he would not want any surgeries or any other to cancer that if he did have a cancer he would just want to let it be and wanted to his time to allow him to pass. He indicates he is his most bothersome because it is sore and uncomfortable to move or cough. He has been taking Aleve and aspirin which helps a little bit though not very much. He tells me he does not want to have any more tests or procedures to confirm the diagnoses, he understands that if he does have a cancer it will be expected to progress and he will become weaker and he will have limited life expectancy. He requests to go home with hospice services. Discussed with primary nurse, as well as medical attending. Called to hospice admissions. Function/Cognitive Trajectory: Lives at home alone independently however does use a cane. Does not like to ambulate far or drive far due to easily fatigues. May benefit from walker at some point. No cognitive changes reported. Review of Systems Constitutional: Reports anorexia, Reports fatigue, Reports weakness, Reports weight loss, Denies fever(s), Denies headache(s), Denies night sweats Ears, Nose, Mouth, and Throat: Denies headache(s), Denies mouth lesions, Denies pain with swallowing, Denies sore throat Cardiovascular: Denies chest pain, Denies leg swelling, Denies lightheadedness, Denies shortness of breath Respiratory: Reports cough, Reports pain with cough (abdominal ), Denies chest congestion Gastrointestinal: Reports abdominal pain, Reports bright, red blood in stools, Reports change in bowel habits, Reports feeling full early, Reports nausea ( intermittent ), Denies difficulty swallowing, Denies incontinent of stools, Denies pain with swallowing, Denies vomiting Genitourinary: Reports decreased urination Musculoskeletal: Denies back pain, Denies body aches, Denies joint pain Skin/Breast: Denies rash Neurologic: Denies dizziness (no dizziness but describes "weird head swimming "feeling), Denies headache(s), Denies memory loss, Denies numbness Psychiatric: Denies anxiety, Denies depression PMF - History History Provided By: Patient - Medical History Medical History: Medical History (Last Reviewed 10/30/18 @ 15:29 by MARTHA Guy) History of kidney stones - Surgical History Surgical History: Surgical History (Last Reviewed 10/30/18 @ 15:29 by MARTHA Guy) No history of previous surgery - Family History Family History: Family History (Last Reviewed 10/30/18 @ 15:29 by MARTHA Guy) Other Lung cancer - Social History I have reviewed the patient's Social History: Yes - Tobacco History Second Hand Smoke Exposure: Yes Tobacco Use In Past 30 Days: Yes Smoking Status: Current every day smoker Tobacco Type: Cigarettes Packs Per Day: 1 - Alcohol History How Often Do You Have a Drink Containing Alcohol: Monthly or less - Substance Use History Substance History: Active Abuse - Substance Use Type Marijuana Route Used: Inhalation (marijuana) - Travel History Recent Travel in the [place] Within the Last 8 Weeks: No Recent Travel Out of the Country Within the Last 8 Weeks: No - Immunization History Tetanus Immunization: Unsure Medications and Allergies Active Medications: Active Medications Acetaminophen (Tylenol) 650 mg PO Q4H PRN PRN Reason: Temp > 100.4 Acetaminophen (Tylenol) 650 mg PO Q6HR PRN PRN Reason: PAIN SCALE 1 TO 2 Al Hydroxide/Mg Hydroxide (Milk Of Magnesia Liq) 30 ml PO Q12H PRN PRN Reason: Mild Constipation Albuterol (Duoneb Neb (Prn)) 1 ampul NEB Q2HR NEB PRN PRN Reason: SHORTNESS OF BREATH Budesonide/Formoterol Fumarate (Symbicort 160/4.5 Mcg Inh) 2 puff INH BID [facility] Last Admin: 10/30/18 08:43 Dose: 2 puff Dextrose (D50w Vial) 50 ml IV.PUSH UNSCH PRN PRN Reason: PER HYPOGLYCEMIA PROTOCOL Glucagon (Glucagon Inj) 1 mg OTHER PRN PRN PRN Reason: for Hypoglycemia Protocol Insulin Aspart (Novolog Insulin Correctional Sugar Inj) 0 unit SQ ACHS [facility]; Protocol Last Admin: 10/30/18 08:50 Dose: Not Given Naloxone HCl (Narcan Inj) 0.4 mg IV.PUSH UNSCH PRN PRN Reason: SEE LABEL COMMENTS Nicotine (Habitrol 21 Mg Patch.24 Hr) 1 patch T-DERMAL DAILY [facility] Last Admin: 10/30/18 08:42 Dose: 1 patch Ondansetron HCl (Zofran Inj) 4 mg IV.PUSH Q6H PRN PRN Reason: NAUSEA OR VOMITING Patch Removal (Remove Old Patch) 1 each T-DERMAL HS [facility] Last Admin: 10/29/18 20:54 Dose: Not Given Sennosides (Senokot) 17.2 mg PO Q12H PRN PRN Reason: Moderate Constipation Sodium Chloride (Ns Flush) 2 ml IV.FLUSH PRN PRN PRN Reason: FLUSH AFTER USING IV ACCESS Sodium Chloride (Ns Flush) 2 ml IV.FLUSH BID [facility] Last Admin: 10/30/18 08:43 Dose: 2 ml Sodium Chloride (Ns Flush) 2 ml IV.FLUSH PRN PRN PRN Reason: FLUSH AFTER USING IV ACCESS Tiotropium [place] (Spiriva 18 Mcg Inh) 18 mcg INH DAILY [facility] Last Admin: 10/30/18 08:42 Dose: 18 mcg Allergies Allergy/AdvReac Type Severity Reaction Status Date / Time No Known Allergies Allergy Verified 10/29/18 15:14 Home Medications Medication Instructions Recorded Confirmed Type No Known Home Medications 10/29/18 10/29/18 History Physical Exam Vital Signs: Vital Signs - 24 hr 10/29/18 14:32 10/29/18 15:04 10/29/18 18:27 Temperature Pulse Rate 109 H 97 H 100 H Respiratory Rate 16 16 19 Blood Pressure 130/73 139/66 167/79 H Pulse Oximetry 97 98 98 10/29/18 19:53 10/30/18 00:00 10/30/18 04:00 Temperature 97.7 F 98.0 F 97.5 F L Pulse Rate 100 H 97 H 86 Respiratory Rate 17 16 14 Blood Pressure 160/66 H 130/65 115/57 L Pulse Oximetry 97 96 98 10/30/18 08:00 10/30/18 12:00 Temperature 97.6 F 97.6 F Pulse Rate 92 H 97 H Respiratory Rate 18 18 Blood Pressure 134/65 137/65 Pulse Oximetry 96 95 I&O: Intake & Output 10/28/18 10/29/18 10/30/18 10/31/18 06:59 06:59 06:59 06:59 Intake Total 1240 / 1240 Balance 1240 / 1240 Weight 75.75 kg Physical Exam: CONSTITUTIONAL/GENERAL: This is an adequately nourished patient, pleasant, alert male TUBES/LINES/DRAINS:PIV upper extremity SKIN: No jaundice, rashes, or lesions. No wounds seen anteriorly. Skin warm/dry HEAD: Atraumatic. Normocephalic. EYES: Pupils equal and round and reactive. Extraocular motions intact. No scleral icterus. No injection or drainage. Fundi not examined. ENT: Hearing grossly normal. Nose without bleeding or purulent drainage. Throat without visible erythema, exudates, masses, or lesions. +poor dentition NECK: Trachea midline. Supple, nontender. No palpable thyroid enlargement or nodularity. CARDIOVASCULAR: Regular rate and rhythm without murmur . No JVD. Peripheral pulses symmetric. RESPIRATORY/CHEST: Symmetric, unlabored respirations. On room air. Faint scattered rhonchi. Breath sounds equal bilaterally. GASTROINTESTINAL: Abdomen soft, +tender, nondistended. + palpable mass mid to lower abdomen just below umbilicus, to LLQ. + guarding. Bowel sounds present. GENITOURINARY: Without palpable bladder distension. dark yellow urine observed in bedside urine collection MUSCULOSKELETAL: Extremities without clubbing, cyanosis, or edema. No joint tenderness or effusion noted. No calf tenderness. No mottling or clubbing. LYMPHATICS: No palpable cervical or supraclavicular adenopathy. NEUROLOGICAL: Awake and alert. Oriented x3, appropriate. Reasonable insight. Motor and sensory grossly within normal limits. Follows commands. Cognitively sharp. Moves all 4 extremities. PSYCHIATRIC: No obvious anxiety/depression. no apparent hallucinations or other psychotic thought process. Diagnostic Tests Laboratory: Laboratory Results - last 72 hr 10/29/18 10/29/18 10/29/18 14:57 14:57 16:00 WBC 15.3 H RBC 4.37 L Hgb 11.7 L Hct 35.5 L MCV 81.2 MCH 26.8 L MCHC 33.0 RDW 16.6 Plt Count 462 H MPV 8.3 Neut % (Auto) 84.9 H Lymph % (Auto) 7.6 L [place] % (Auto) 6.6 Eos % (Auto) 0.3 Baso % (Auto) 0.6 Neut # (Auto) 13.0 H Lymph # (Auto) 1.2 [place] # (Auto) 1.0 H Eos # (Auto) 0.1 Baso # (Auto) 0.1 WBC Differential . Differential Comment Auto diff final Sodium 131 L Potassium 4.3 Chloride 93 L Carbon Dioxide 26.5 Anion Gap 12 BUN 22 H Creatinine 0.99 Estimated GFR 75 L POC Glucose Random Glucose 136 H Calcium 9.0 Magnesium 2.3 Iron TIBC % Saturation Total Bilirubin 0.7 AST 15 ALT 15 Alkaline Phosphatase 133 H Lactate Dehydrogenase Total Protein 8.0 Albumin 2.6 L Lipase 63 L Tumor Marker AFP Carcinoembryonic Ag CA 19-9 Antigen Urine Color Sarahi Urine Clarity Hazy H Urine pH 5.0 Ur Specific [place] 1.026 Urine Protein 100 H Urine Glucose (UA) Negative Urine Ketones 20 Urine Occult Blood Negative Urine Nitrate Negative Urine Bilirubin Negative Urine Ictotest Negative Urine Urobilinogen 4 or greater Ur Leukocyte Esterase Negative Urine RBC 2 Urine WBC 3 Ur Squamous Epith Cells <1 Hyaline Casts 4 Granular Casts 10 Urine Mucus Many H Micro UA Comment Culture not ind Ur Microscopic Review Not Reportable Urine Culture Comments Culture not ind 10/29/18 10/30/18 10/30/18 23:44 07:57 07:57 WBC RBC Hgb Hct MCV MCH MCHC RDW Plt Count MPV Neut % (Auto) Lymph % (Auto) [place] % (Auto) Eos % (Auto) Baso % (Auto) Neut # (Auto) Lymph # (Auto) [place] # (Auto) Eos # (Auto) Baso # (Auto) WBC Differential Differential Comment Sodium Potassium Chloride Carbon Dioxide Anion Gap BUN Creatinine Estimated GFR POC Glucose 141 H Random Glucose Calcium Magnesium Iron 22 L TIBC 210 L % Saturation 10.5 L Total Bilirubin AST ALT Alkaline Phosphatase Lactate Dehydrogenase 154 Total Protein Albumin Lipase Tumor Marker AFP 1.4 Carcinoembryonic Ag 3.7 CA 19-9 Antigen 7.9 Urine Color Urine Clarity Urine pH Ur Specific [place] Urine Protein Urine Glucose (UA) Urine Ketones Urine Occult Blood Urine Nitrate Urine Bilirubin Urine Ictotest Urine Urobilinogen Ur Leukocyte Esterase Urine RBC Urine WBC Ur Squamous Epith Cells Hyaline Casts Granular Casts Urine Mucus Micro UA Comment Ur Microscopic Review Urine Culture Comments 10/30/18 10/30/18 10/30/18 07:57 07:57 08:50 WBC 11.7 H RBC 4.41 L Hgb 11.5 L Hct 35.6 L MCV 80.6 MCH 26.1 L MCHC 32.4 RDW 16.2 Plt Count 446 MPV 7.3 Neut % (Auto) 82.7 H Lymph % (Auto) 8.9 L [place] % (Auto) 7.0 Eos % (Auto) 1.0 Baso % (Auto) 0.4 Neut # (Auto) 9.7 H Lymph # (Auto) 1.0 [place] # (Auto) 0.8 Eos # (Auto) 0.1 Baso # (Auto) 0.0 WBC Differential . Differential Comment Auto diff final Sodium 134 L Potassium 4.3 Chloride 97 L Carbon Dioxide 28.4 Anion Gap 9 BUN 15 Creatinine 0.64 Estimated GFR Greater than 89 POC Glucose 109 Random Glucose 103 Calcium 8.3 L Magnesium Iron TIBC % Saturation Total Bilirubin 0.7 AST 15 ALT 14 Alkaline Phosphatase 116 Lactate Dehydrogenase Total Protein 7.3 D Albumin 2.3 L Lipase Tumor Marker AFP Carcinoembryonic Ag CA 19-9 Antigen Urine Color Urine Clarity Urine pH Ur Specific [place] Urine Protein Urine Glucose (UA) Urine Ketones Urine Occult Blood Urine Nitrate Urine Bilirubin Urine Ictotest Urine Urobilinogen Ur Leukocyte Esterase Urine RBC Urine WBC Ur Squamous Epith Cells Hyaline Casts Granular Casts Urine Mucus Micro UA Comment Ur Microscopic Review Urine Culture Comments Result Diagrams: 10/30/18 07:57 10/30/18 07:57 Imaging: Impressions Abdomen/Pelvis CT 10/29/18 14:51 CONCLUSION: 1. Large mass the rectus anterior abdominal wall, undoubtedly malignant 2. Abnormal cecum 3. 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 4. Patient/Family Conference Family Conference Location: Bedside Issues Discussed: Met with patient at bedside, discussed the following: * Palliative care role, purpose, approach * Additional medical, psychosocial, and spiritual history * Patients general health, functional status, and cognitive status leading up to the current hospitalization * Patient understanding of the current medical problems * Patient understanding of prognosis * Patients goals of care * Current medical treatment options and benefits/burdens of those options; review of potential diagnostics possible potential treatment options * CODE STATUS-he requests DNR no artificial measures * Healthcare surrogate/decision makers-he is not particularly close with his family is not certain who he would designate at this time * Likely scenarios comparing ongoing aggressive care with a transition to comfort measures only * Questions answered to the best of my ability * Palliative care contact information provided Review with patient hospital course thus far, diagnostic findings and probable malignancy. Reviewed with him potential diagnostic and treatment options. He expresses he is not interested in further diagnostics and that even if he did have a cancer he would not want any type of cancer treatment. He indicates he just wants to be home and comfortable and if he gets to end of life wants to be comfortable. Request hospice services as he indicated they provided good care for his mother as she was nearing end-of-life with lung cancer. He understands he likely has a life limiting condition potentially treatable and he does not wish to pursue this. Assessment and Plan - Disease Oriented Problem List (1) Abdominal mass Comment: probably malignancy (2) Liver mass (3) Weight loss, unintentional - Symptom Scale (1) Abdominal pain 0-10 Scale: 10 (2) Weakness 0-10 Scale: Unable to quantify (3) Decreased appetite 0-10 Scale: Unable to quantify Pertinent Non-Medical Issues: Psychosocial: Originally from [place] though has lived in [place] for many years. Formerly worked as a truck driver instructor, and and other occupations following that. Does have some extended family siblings, nephews etc. that was not particularly close with his family does not wish for me to update any of them today. Not , no children. Spiritual: Legal: Patient currently capacitated, oriented and able to make his own decisions. He is not certain who he would want to make decisions for him should he become incapacitated. He indicates he is semi-estranged from his family though he will consider designation of a healthcare surrogate in the future. Ethical issues impacting care: No ethical issues identified. Important Contacts: Sister Nishi Elizabeth [phone] Prognosis: This patient presented for painful abdominal mass which had been present for several months. CT imaging findings of a large 18 x 9 cm mass. Probable malignancy. Some extension into left lobe of liver metastasis. He has had significant weight loss over the past 1 year. He has had poor appetite. Probable cancer, treatment options not fully known at this time. Patient does not wish to pursue further diagnostic workup, does not desire any cancer directed treatments. Probable life limiting condition appropriate for hospice. Code Status: No Code DNR Plan: Legal decision maker: Pt capacitated, able to make his own decisions. He is not certain at this time who he would trust to make his decisions should he become incapacitated. He has family though is semi estranged from them. Goals: goals for comfort treatment only .Does NOT WANT FURTHER DIAGNOSTICS OR INVASIVE TESTING, would NOT want any time of chemo, radiation, surgery or other cancer directed treatments. Wants to go home with hospice support. hospice ordered, call to hospice admissions. Updated RN and medical attending. CODE STATUS: DNR SYMPTOMS: --abdominal pain- sharp mid lower abdomen x few mos. Worse w cough, exertions etc. Uses OTC asa, aleve with minimal relief. No chronic opiates reports. No other chronic pains reported. Large mass found, 17x9 cm "undoubtable malignant " per report. Possible mets to liver. 10/10 "knife like" pain at times, if still and at rest pain is much less, tolerable. Add prn norco 5mg, monitor for effectiveness. -- weight loss/poor appetite- 2/2 malignancy, approx 70# in 1 yr. Food is just not appealing. Eats a few bites of things he likes. ordered for reg diet today, enc pt to eat calorie dense things that he does like. appetite stimulant could be considered but limited benefit. -- fatigue- tires easily with activity. Ambulates around home w cane, may benefit from walker for improved stability. Likely deconditioned, worsened 2/2 to malignancy, weight loss; skilled therapy of limited benefit given expected trajectory of disease process (presumed malignancy) Palliative care will continue to follow during hospital course as condition evolves, to assist patient/decision-maker with understanding of medical conditions, weighing benefits/burdens of treatment options, for clarification of goals of treatment. Additionally will assist with any symptoms of palliative concern Appreciation Thank you for the opportunity to participate in the care of Miguel Valdez. Attestation Attestation: To help prompt me to consider important information that might be impacting today's encounter and assessment, information from prior notes written by myself or my colleagues may have been "brought forward" into today's note. My signature on this note, however, is an attestation that I personally performed the exam, history, and/or decision-making noted today, and, unless otherwise indicated, the interactions with patient, family, and staff as well as the review of records all occurred today. I also attest that the listed assessment and stated plan reflect my best clinical judgment today based on the combination of historical information, prior notes, and today's exam/ interactions. When time spent is documented, it refers only to time spent today by the signer, or if indicated, combined time spent today by collaborating physician/nurse practitioner.
[2018-10-30 13:52] LABS: Hemoglobin A1c 6.8 % (4.3-6.0)
--- NOTE | 2018-10-30 15:33 | P.PN ---
Subjective Interval history: Nursing denies any acute changes overnight. Discussed with palliative care, patient not wanting aggressive workup or treatment. He says he came to the hospital to get hospice. Patient has verbalized he does not want an oncology consultation at this time. He also verbalizes that he wants to be a no code DNR. Physical Exam Vital signs: Vital Signs 10/29/18 18:27 10/29/18 19:53 10/30/18 00:00 Temperature 97.7 F 98.0 F Pulse Rate 100 H 100 H 97 H Respiratory Rate 19 17 16 Blood Pressure 167/79 H 160/66 H 130/65 Pulse Oximetry 98 97 96 10/30/18 04:00 10/30/18 08:00 10/30/18 12:00 Temperature 97.5 F L 97.6 F 97.6 F Pulse Rate 86 92 H 97 H Respiratory Rate 14 18 18 Blood Pressure 115/57 L 134/65 137/65 Pulse Oximetry 98 96 95 Intake & Output 10/29/18 10/30/18 10/30/18 18:59 06:59 18:59 Intake Total 1000 / 1000 240 / 240 Balance 1000 / 1000 240 / 240 Weight 77.564 kg 75.75 kg Intake: IV 1000 / 1000 NS Inj 1,000 ML @ Wide Open IV. 1000 / 1000 SIG BOLUS ONE Rx#:[id number] Oral 240 / 240 Other: # Voids 2 Weight On Admission 75.75 kg Narrative: Coarse breath sounds bilaterally, unlabored breathing Heart sounds regular rate and rhythm, no murmurs Abdomen soft, tenderness noted in epigastrium Awake and alert, no acute distress Results - Labs CBC & Chem 7: 10/30/18 07:57 10/30/18 07:57 Laboratory Results - last 24 hr 10/29/18 10/29/18 10/29/18 14:57 16:00 23:44 WBC RBC Hgb Hct MCV MCH MCHC RDW Plt Count MPV Neut % (Auto) Lymph % (Auto) [place] % (Auto) Eos % (Auto) Baso % (Auto) Neut # (Auto) Lymph # (Auto) [place] # (Auto) Eos # (Auto) Baso # (Auto) WBC Differential Differential Comment Sodium 131 L Potassium 4.3 Chloride 93 L Carbon Dioxide 26.5 Anion Gap 12 BUN 22 H Creatinine 0.99 Estimated GFR 75 L POC Glucose 141 H Random Glucose 136 H Hemoglobin A1c Calcium 9.0 Magnesium 2.3 Iron TIBC % Saturation Total Bilirubin 0.7 AST 15 ALT 15 Alkaline Phosphatase 133 H Lactate Dehydrogenase Total Protein 8.0 Albumin 2.6 L Lipase 63 L Tumor Marker AFP Carcinoembryonic Ag CA 19-9 Antigen Urine Color Sarahi Urine Clarity Hazy H Urine pH 5.0 Ur Specific [place] 1.026 Urine Protein 100 H Urine Glucose (UA) Negative Urine Ketones 20 Urine Occult Blood Negative Urine Nitrate Negative Urine Bilirubin Negative Urine Ictotest Negative Urine Urobilinogen 4 or greater Ur Leukocyte Esterase Negative Urine RBC 2 Urine WBC 3 Ur Squamous Epith Cells <1 Hyaline Casts 4 Granular Casts 10 Urine Mucus Many H Micro UA Comment Culture not ind Ur Microscopic Review Not Reportable Urine Culture Comments Culture not ind 10/30/18 10/30/18 10/30/18 07:57 07:57 07:57 WBC 11.7 H RBC 4.41 L Hgb 11.5 L Hct 35.6 L MCV 80.6 MCH 26.1 L MCHC 32.4 RDW 16.2 Plt Count 446 MPV 7.3 Neut % (Auto) 82.7 H Lymph % (Auto) 8.9 L [place] % (Auto) 7.0 Eos % (Auto) 1.0 Baso % (Auto) 0.4 Neut # (Auto) 9.7 H Lymph # (Auto) 1.0 [place] # (Auto) 0.8 Eos # (Auto) 0.1 Baso # (Auto) 0.0 WBC Differential . Differential Comment Auto diff final Sodium Potassium Chloride Carbon Dioxide Anion Gap BUN Creatinine Estimated GFR POC Glucose Random Glucose Hemoglobin A1c Calcium Magnesium Iron 22 L TIBC 210 L % Saturation 10.5 L Total Bilirubin AST ALT Alkaline Phosphatase Lactate Dehydrogenase 154 Total Protein Albumin Lipase Tumor Marker AFP 1.4 Carcinoembryonic Ag 3.7 CA 19-9 Antigen 7.9 Urine Color Urine Clarity Urine pH Ur Specific [place] Urine Protein Urine Glucose (UA) Urine Ketones Urine Occult Blood Urine Nitrate Urine Bilirubin Urine Ictotest Urine Urobilinogen Ur Leukocyte Esterase Urine RBC Urine WBC Ur Squamous Epith Cells Hyaline Casts Granular Casts Urine Mucus Micro UA Comment Ur Microscopic Review Urine Culture Comments 10/30/18 10/30/18 10/30/18 07:57 07:57 08:50 WBC RBC Hgb Hct MCV MCH MCHC RDW Plt Count MPV Neut % (Auto) Lymph % (Auto) [place] % (Auto) Eos % (Auto) Baso % (Auto) Neut # (Auto) Lymph # (Auto) [place] # (Auto) Eos # (Auto) Baso # (Auto) WBC Differential Differential Comment Sodium 134 L Potassium 4.3 Chloride 97 L Carbon Dioxide 28.4 Anion Gap 9 BUN 15 Creatinine 0.64 Estimated GFR Greater than 89 POC Glucose 109 Random Glucose 103 Hemoglobin A1c 6.8 H Calcium 8.3 L Magnesium Iron TIBC % Saturation Total Bilirubin 0.7 AST 15 ALT 14 Alkaline Phosphatase 116 Lactate Dehydrogenase Total Protein 7.3 D Albumin 2.3 L Lipase Tumor Marker AFP Carcinoembryonic Ag CA 19-9 Antigen Urine Color Urine Clarity Urine pH Ur Specific [place] Urine Protein Urine Glucose (UA) Urine Ketones Urine Occult Blood Urine Nitrate Urine Bilirubin Urine Ictotest Urine Urobilinogen Ur Leukocyte Esterase Urine RBC Urine WBC Ur Squamous Epith Cells Hyaline Casts Granular Casts Urine Mucus Micro UA Comment Ur Microscopic Review Urine Culture Comments 10/30/18 13:18 WBC RBC Hgb Hct MCV MCH MCHC RDW Plt Count MPV Neut % (Auto) Lymph % (Auto) [place] % (Auto) Eos % (Auto) Baso % (Auto) Neut # (Auto) Lymph # (Auto) [place] # (Auto) Eos # (Auto) Baso # (Auto) WBC Differential Differential Comment Sodium Potassium Chloride Carbon Dioxide Anion Gap BUN Creatinine Estimated GFR POC Glucose 110 Random Glucose Hemoglobin A1c Calcium Magnesium Iron TIBC % Saturation Total Bilirubin AST ALT Alkaline Phosphatase Lactate Dehydrogenase Total Protein Albumin Lipase Tumor Marker AFP Carcinoembryonic Ag CA 19-9 Antigen Urine Color Urine Clarity Urine pH Ur Specific [place] Urine Protein Urine Glucose (UA) Urine Ketones Urine Occult Blood Urine Nitrate Urine Bilirubin Urine Ictotest Urine Urobilinogen Ur Leukocyte Esterase Urine RBC Urine WBC Ur Squamous Epith Cells Hyaline Casts Granular Casts Urine Mucus Micro UA Comment Ur Microscopic Review Urine Culture Comments - Imaging Impressions Abdomen/Pelvis CT 10/29/18 14:51 CONCLUSION: 1. Large mass the rectus anterior abdominal wall, undoubtedly malignant 2. Abnormal cecum 3. 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 4. Assessment and Plan - Plan 68-year-old with Abdominal mass suspicious for malignant tumor Metastasis disease of unknown cancer type CT abdomen noted and reviewed by me with finding of 1. Large mass the rectus anterior abdominal wall, undoubtedly malignant 2. Abnormal cecum 3. 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 GI has signed off as the patient does not want any further invasive diagnostic procedures including but not limited to colonoscopy and EGD. History of diabetes type 2 Check hemoglobin A1c Leukocytosis Likely stress reactive, monitor Normochromic normocytic anemia Iron deficient Tobacco abuse Tobacco counseling cessation provided DVT prophylaxis:B-SCDs Discharge Planning: Awaiting hospice consultation and disposition.
[2018-10-30 16:14] VITALS: BP 151/66; PULSE 106; RESP 22; TEMP 98.2
== END 2018-10-31 00:18 | disposition hospice, home (50) ==
LOC: NEDA 14:10 → NEPC 14:10 → NEDA 19:34 → NEPGCP 19:37
PROVIDERS: ADMIT Hospitalist; ATTEND Hospitalist